=== PATIENT | male | born 1990 | race Caucasian/White ===

== ENCOUNTER 2019-08-18 00:56 | Emergency (ER) | payer MEDICAID ==
[~2019-08-18] VITALS: Ht 182.9 cm; Wt 86.2 kg
[2019-08-18 01:48] LABS: HEMATOCRIT 35.7 % (42.0-52.0); HEMOGLOBIN 12.1 gm/dL (14.0-18.0); MCH 30.3 pg (26.0-34.0); MCHC 33.9 g/dL (28.0-37.0); MCV 89.3 fL (80.0-100.0); MPV 7.5 fl. (7.2-11.1); NUCLEATED RBCS 0 /100WBC; PLATELET COUNT* 426 thou/uL (150-400); RBC 3.99 mil/uL (4.50-6.00); WBC 14.1 thou/uL (4.0-11.0)
[2019-08-18 01:53] LABS: CALCIUM 8.8 mg/dL (8.5-10.1); CREATININE 0.9 mg/dL (0.6-1.3); POTASSIUM 3.7 mmol/L (3.5-5.1)
[2019-08-18 02:05] LABS: ALBUMIN 3.1 g/dL (3.4-5.0); TOTAL BILIRUBIN 0.3 mg/dL (<0.1-1.0); TOTAL PROTEIN 7.9 g/dL (6.4-8.2)
[2019-08-18 02:11] LABS: INFLUENZA A ANTIGEN Negative (Negative); INFLUENZA B ANTIGEN Negative (Negative)
[2019-08-18] MEDS ORDERED: AMOXICILLIN875 MG PO (02:29)
[2019-08-18] MEDS ORDERED: HYDROCODON-ACE1 EAC7 PO (02:48)
[2019-08-18] MEDS ORDERED: IBUPROFEN 800800 M1 PO (02:48)
[2019-08-18 03:12] LABS: URINE BILIRUBIN NEGATIVE (Negative); URINE BLOOD NEGATIVE (Negative); URINE CLARITY CLEAR; URINE COLOR YELLOW; URINE GLUCOSE-RANDOM NEGATIVE (Negative); URINE KETONES NEGATIVE (Negative); URINE LEUKOCYTES-REFLEX NEGATIVE (Negative); URINE NITRITE-REFLEX NEGATIVE (Negative); URINE PROTEIN NEGATIVE (Negative); URINE UROBILINOGEN 0.2 E.U./dl (0.2-1.0)
[2019-08-18 03:28] VITALS: BP 150/108
[2019-08-18 03:28] LABS: AMP/METHAMP POSITIVE (Negative); BARBITURATES Negative (Negative); BENZODIAZEPINES POSITIVE (Negative); COCAINE Negative (Negative); METHADONE Negative (Negative); OPIATES Negative (Negative); PCP Negative (Negative); THC POSITIVE (Negative)
[2019-08-18 03:54] LABS: ABSOLUTE BASOPHILS 0.1 thou/uL (0.0-0.2); ABSOLUTE EOSINOPHILS 0.3 thou/uL (0.0-0.7); ABSOLUTE NEUTROPHILS 9.7 thou/uL (1.6-8.1); ATYPICAL LYMPHS 2 %; LARGE PLATELETS OCCASIONAL; PLATELET ESTIMATE INCREASED; TOXIC GRANULATION 1+
--- NOTE | 2019-08-18 14:22 | EKG ---
[place] [address] ELECTROCARDIOGRAM REPORT Name: NEETA GREENWOOD Room: [facility]#: [id number] Admission: 08/18/19 Attend Phys: Discharge: 08/18/19 Date of : 88 Date of Service: 08/18/19 0134 Report #: [id number] THIS REPORT FOR: //name// [facility] ED Test Date: 2019-08-18 Test Time: 01:34:52 Pat Name: NEETA GREENWOOD Department: Room: Gender: Network Applications Specialist: MYNOR : 1990 Requested By: Jacinda Burrows Order Number: [id number] MD: Darion Sanchez Measurements Intervals [place] Rate: 129 P: 36 MI: 136 QRS: -7 QRSD: 92 T: 30 QT: 302 QTc: 443 Interpretive Statements Sinus tachycardia RSR' in V1 or V2, right VCD or RVH LVH by voltage Artifact in lead(s) I,II,III,aVR,aVL,aVF,V1 No previous ECG available for comparison Electronically Signed On 08-18-2019 14:20:18 CDT by Darion Sanchez [email or web address] <ELECTRONICALLY SIGNED> By: Darion Sanchez MD, [facility] 08/18/19 1420 0134 0134 Darion Sanchez MD, [facility] /EPI
== END 2019-08-18 03:28 | disposition home or self-care (01) ==
LOC: M.ERS 00:56
PROVIDERS: Personal Emergency Response Attendant
DX: E86.0 Dehydration (principal); J02.0 Streptococcal pharyngitis